=== PATIENT | male | born 1940 | race Caucasian/White ===

== ENCOUNTER 2018-03-20 15:56 | Emergency (ER) | payer MEDICARE, OTHER ==
[~2018-03-20] VITALS: Ht 180.3 cm; Wt 70.2 kg
[2018-03-20 16:05] VITALS: BP 122/68
--- NOTE | 2018-03-20 19:42 | NUR ---
NO RESPONSE FROM LOBBY AFTER 3 ATTEMPTS TO ROOM. MARVA PLACED TO [facility] ON FILE. REIEVED NUMBER NOT IN SERVICE RECORDING. DR. FLORENCE INFORMED.
== END 2018-03-20 18:32 | disposition left against medical advice (07) ==
LOC: ER 15:56
DX: H92.11 Otorrhea, right ear (principal); Z53.21 Procedure and treatment not carried out due to patient leaving prior to being seen by health care provider